=== PATIENT | male | born 1995 | race Hispanic/Latino ===

== ENCOUNTER 2024-02-08 19:29 | Emergency (ER) | payer OTHER, SELFPAY ==
[2024-02-08 20:11] VITALS: BP 112/75; PULSE 73; RESP 16; TEMP 37; O2SAT 98; BMI 30.9
[2024-02-09 00:53] VITALS: BP 127/79; PULSE 60; RESP 16; TEMP 36.6; O2SAT 98
--- NOTE | 2024-02-09 02:18 | ED.EYEPROB ---
HPI - Eye Problem General Chief complaint: Eye Problems Stated complaint: foreign body in eye Time Seen by Provider: 02/09/24 02:07 Source: patient Mode of arrival: Ambulatory History of Present Illness HPI Narrative: 28-year-old male was working at [employer], unloading boxes, approximately 7:00 p.m. last night, had foreign body sensation to left eye that has been persisting. He does not wear glasses. He does not wear contacts. He has not had discharge. No other injuries recalled. No gas or chemical exposure. Related Data Previous Rx's Medication Instructions Recorded erythromycin 5 mg/gram (0.5 %) eye 1 applic EYE-LEFT TID eye 02/09/24 ointment infection 7 days #3.5 grams Allergies Allergy/AdvReac Type Severity Reaction Status Date / Time No Known Drug Allergies Allergy Verified 02/08/24 20:11 Review of Systems Review of Systems Narrative: As per HPI Patient History Social History Smoking Status: Never smoker Smoking Status: Never smoker Substance Use Type: does not use Exam Narrative Exam Narrative: GENERAL: Well-developed patient, in mild distress. HEAD: Atraumatic. Normocephalic. EYES: Pupils equal round and reactive. Extraocular motions intact. No scleral icterus. No injection or drainage. Injected left sclerae, fluorescein exam with some uptake in the 8 o'clock position sclera left eye, no corneal uptake, no foreign bodies visualized. ENT: Nose without bleeding, purulent drainage. Throat without erythema, tonsillar hypertrophy or exudate. Airway patent. NECK: Trachea midline. Non tender CARDIOVASCULAR: Regular rate and rhythm without murmurs, gallops, or rubs. RESPIRATORY: Clear to auscultation. Breath sounds equal bilaterally. No wheezes, rales, or rhonchi. GASTROINTESTINAL: Abdomen soft, non-tender, nondistended. EXTREMITIES: No edema or joint tenderness. BACK: Nontender without deformity or crepitance. No flank tenderness. NEURO: AOx3. SKIN: No rash or erythema of visible areas Initial Vital Signs Initial Vital Signs: Vital Signs Temperature 98.6 F 02/08/24 20:11 Pulse Rate 73 02/08/24 20:11 Respiratory Rate 16 02/08/24 20:11 Blood Pressure 112/75 02/08/24 20:11 Pulse Oximetry 98 02/08/24 20:11 Oxygen Delivery Method Room Air 02/08/24 20:11 Course Orders Ordered: Discontinued Medications Erythromycin (Erythromycin Ophth 1 Gm Oint) 1 applic EYE-LEFT NOW ONE Stop: 02/09/24 02:32 Last Admin: 02/09/24 02:47 Dose: 1 applic Documented By: Fluorescein Sodium (Fluorescein 1 Mg Strip) 1 mg EYE-LEFT NOW ONE Stop: 02/09/24 02:10 Proparacaine HCl (Proparacaine 0.5% Ophth Alycia) 1 drops EYE-LEFT NOW ONE Stop: 02/09/24 02:12 Proparacaine HCl (Proparacaine 0.5% Ophth Alycia) 1 drops EYE-LEFT NOW ONE Stop: 02/09/24 02:12 Vital Signs Vital signs: Vital Signs - 8 hr 02/09/24 00:53 02/09/24 02:52 Temperature 97.9 F 98.2 F Pulse Rate 60 98 H Respiratory Rate 16 18 Blood Pressure 127/79 135/78 Pulse Oximetry 98 98 Oxygen Delivery Method Room Air Room Air MDM - Eye Problem MDM Narrative Medical decision making narrative: Foreign body sensation left eye at work, fluorescein exam with Wood's lamp shows 8:00 a.m. positions scleral abrasion, no obvious corneal abrasion. No obvious foreign bodies seen. Antibiotic ointment erythromycin, prescription for antibiotic ointment. Follow up local eye clinic tomorrow of the next day. Return precautions discussed. L and I form for the [facility] filled out, claim [place] [id number]. Discharge Plan Departure Patient Disposition: Home Clinical Impression: Abrasion of sclera of left eye Instructions: DI for Eye Pain Activity Restrictions/Additional Instructions: Foreign body sensation left eye, after work, on examination fluorescein dye staining there seems to be some small abrasion to the 8 o'clock position left eye, that might be the sensation of foreign body, I could not see any foreign body to try to remove. Is important to have further evaluation [facility] tomorrow with Dr Wheatley (phone, ). Form filled out for [employer] claim, claim number [id number] Prescriptions: New erythromycin 5 mg/gram (0.5 %) ointment 1 applic EYE-LEFT TID 7 Days Qty: 3.5 0RF Referrals: Nessa Wheatley MD [Physician] - Miscellaneous,DoctorMD [Primary Care Provider] - Stand Alone Forms: Patient Portal/API
[2024-02-09] MEDS: ERYTHROMYCIN OPHTH 1 GM OINT 1 APPLIC EYE-LEFT (02:47)
[2024-02-09 02:52] VITALS: BP 135/78; PULSE 98; RESP 18; TEMP 36.8; O2SAT 98
== END 2024-02-09 02:53 | disposition home or self-care (01) ==
PROVIDERS: Emergency Provider Emergency Medicine
DX: S05.8X2A Other injuries of left eye and orbit, initial encounter (principal); W44.9XXA Unspecified foreign body entering into or through a natural orifice, initial encounter; Y99.0 Civilian activity done for income or pay
CPT/HCPCS: 99282; 99283